=== PATIENT | male | born 1945 | race Caucasian/White ===

== ENCOUNTER 2023-12-16 12:00 | Inpatient (IN) | payer MEDICARE ==
[~2023-12-16] VITALS: Ht 177.8 cm; Wt 77.1 kg
[2023-12-16 12:41] LABS: BASOPHILS # (AUTO) 0.1 K/uL (0.0-0.2); BASOPHILS % (AUTO) 0.6 % (0.0-2.0); EOSINOPHILS # (AUTO) 0.1 K/uL (0.0-0.7); EOSINOPHILS % (AUTO) 0.6 % (0.0-6.0); HEMATOCRIT 47 % (39-51); HEMOGLOBIN 16.1 g/dL (13.5-17.5); LYMPHOCYTES # (AUTO) 3.1 K/uL (0.8-4.8); MEAN CORPUSCULAR HEMOGLOBIN 35 PG (26.0-33.0); MEAN CORPUSCULAR HGB CONC 34 g/dl (31.0-36.0); MEAN CORPUSCULAR VOLUME 101 fL (80-96); MONOCYTES % (AUTO) 9.8 % (2.0-12.0); NEUTROPHILS # (AUTO) 6.4 K/uL (1.8-8.9); PLATELET COUNT (AUTO) 375 K/uL (150-450); RED BLOOD CELL COUNT(AUTO) 4.65 MIL/uL (4.5-6.0); RED CELL DISTRIBUTION WIDTH 14.7 % (11.5-15.0); WHITE BLOOD COUNT (AUTO) 10.7 K/uL (4.3-11.0)
[2023-12-16 12:49] LABS: INR 1.14 (0.91-1.10); PARTIAL THROMBOPLASTIN TIME 23.1 SEC (24.3-34.3)
[2023-12-16 13:06] LABS: ALANINE AMINOTRANSFERASE 26 U/L (12-78); ALBUMIN 3.5 g/dL (3.4-5.0); ALKALINE PHOSPHATASE 99 U/L (46-116); ASPARTATE AMINOTRANSFERASE 20 U/L (15-37); BILIRUBIN,DIRECT 0.2 mg/dL (0.0-0.2); BILIRUBIN,TOTAL 0.7 mg/dL (0.2-1.0); CALCIUM, SERUM 10.1 mg/dL (8.5-10.1); CARBON DIOXIDE 25 mmol/L (21-32); CHLORIDE 99 mmol/L (98-107); GLUCOSE 142 mg/dL (74-106); POTASSIUM 3.6 mmol/L (3.5-5.1); SODIUM SERUM 136 mmol/L (136-145); TOTAL PROTEIN, SERUM 8.6 g/dL (6.4-8.2); UREA NITROGEN, BLOOD 7 mg/dL (7-18)
[2023-12-16 13:07] LABS: LACTIC ACID 3.1 mmol/L (0.4-2.0)
[2023-12-16] MEDS ORDERED: CEFTRIAXONE 1GM BAG (ER ONLY) 50 ML IV ONE (13:28)
[2023-12-16] MEDS: IV NS 0.9% 1,000 ML BAG IV ONE ×2 (13:40→13:41)
[2023-12-16] MEDS: CEFTRIAXONE 1GM BAG (ER ONLY) 1 GM/50 ML PIGGYBACK IV ONE (13:41)
[2023-12-16] MEDS ORDERED: ZOLPIDEM TARTRATE 5 MG TABLET PO PRN (15:00)
[2023-12-16] MEDS ORDERED: Z GUARD REMEDY 4 OZ OINT TP PRN (15:00)
[2023-12-16] MEDS ORDERED: HYDROCODONE/APAP 5/325MG TABLET PO PRN (15:00)
[2023-12-16] MEDS ORDERED: ACETAMINOPHEN 325 MG TABLET PO PRN (15:00)
[2023-12-16] MEDS ORDERED: ONDANSETRON HCL/PF 4 MG/2 ML VIAL IVP PRN (15:00)
[2023-12-16] MEDS ORDERED: MAGNESIUM HYDROXIDE 30 ML UDC PO PRN (15:00)
[2023-12-16] MEDS ORDERED: MAG HYDROX/AL HYDROX/SIMETH 30 ML UDC PO PRN (15:00)
[2023-12-16 16:00] VITALS: BP 140/82; TEMP 98.4; O2SAT 96
[2023-12-16] MEDS: IV NS 0.9% 1,000 ML IV PRN (18:37)
[2023-12-16 20:00] VITALS: BP 129/81; TEMP 99; O2SAT 95
[2023-12-16] MEDS: ENOXAPARIN SODIUM 40 MG/0.4 ML DISP.SYRIN SQ SCH (21:01)
[2023-12-17] VITALS (7 sets, daily range): BP systolic 111–151; BP diastolic 71–99; TEMP 97.7–98.8; O2SAT 97–99
[2023-12-17 06:41] LABS: BASOPHILS # (AUTO) 0.1 K/uL (0.0-0.2); BASOPHILS % (AUTO) 0.7 % (0.0-2.0); EOSINOPHILS # (AUTO) 0.1 K/uL (0.0-0.7); EOSINOPHILS % (AUTO) 1.6 % (0.0-6.0); HEMATOCRIT 43 % (39-51); HEMOGLOBIN 14.4 g/dL (13.5-17.5); LYMPHOCYTES # (AUTO) 3.1 K/uL (0.8-4.8); LYMPHOCYTES % (AUTO) 38.4 % (20.0-44.0); MEAN CORPUSCULAR HEMOGLOBIN 34 PG (26.0-33.0); MEAN CORPUSCULAR HGB CONC 34 g/dl (31.0-36.0); MEAN CORPUSCULAR VOLUME 102 fL (80-96); MONOCYTES % (AUTO) 12.3 % (2.0-12.0); NEUTROPHILS # (AUTO) 3.9 K/uL (1.8-8.9); PLATELET COUNT (AUTO) 340 K/uL (150-450); RED CELL DISTRIBUTION WIDTH 14.8 % (11.5-15.0); WHITE BLOOD COUNT (AUTO) 8.2 K/uL (4.3-11.0)
[2023-12-17 06:58] LABS: CALCIUM, SERUM 9.4 mg/dL (8.5-10.1); CARBON DIOXIDE 24 mmol/L (21-32); CHLORIDE 105 mmol/L (98-107); CREATININE 0.9 mg/dL (0.6-1.3); GLUCOSE 91 mg/dL (74-106); MAGNESIUM 1.8 mg/dL (1.8-2.4); PHOSPHORUS 3.2 mg/dL (2.5-4.9); POTASSIUM 3.4 mmol/L (3.5-5.1); SODIUM SERUM 139 mmol/L (136-145); UREA NITROGEN, BLOOD 9 mg/dL (7-18)
[2023-12-17] MEDS: PANTOPRAZOLE 40 MG TABLET.DR PO SCH (07:58)
[2023-12-17] MEDS: POTASSIUM CHLORIDE 20 MEQ TAB.PRT.SR PO ONE (09:42)
[2023-12-18] VITALS: BP 139/87; TEMP 98.8; O2SAT 97
[2023-12-18 04:00] VITALS: BP 132/85; TEMP 98.2; O2SAT 96
[2023-12-18 06:21] LABS: CALCIUM, SERUM 8.6 mg/dL (8.5-10.1); CARBON DIOXIDE 25 mmol/L (21-32); CHLORIDE 106 mmol/L (98-107); CREATININE 0.8 mg/dL (0.6-1.3); GLUCOSE 99 mg/dL (74-106); POTASSIUM 3.4 mmol/L (3.5-5.1); SODIUM SERUM 140 mmol/L (136-145); UREA NITROGEN, BLOOD 9 mg/dL (7-18)
[2023-12-18 08:00] VITALS: BP 158/92; TEMP 98.4; O2SAT 96
[2023-12-18] MEDS: POTASSIUM CHLORIDE 20 MEQ TAB.PRT.SR PO ONE (11:03)
[2023-12-18 12:00] VITALS: BP_SYST 128; BP_SYST 130; BP_DIAS 80; BP_DIAS 81; TEMP 98.4; TEMP 99.1; O2SAT 96; O2SAT 97
[2023-12-18 16:00] VITALS: BP 127/90; TEMP 99.5; O2SAT 96
[2023-12-18 20:00] VITALS: BP 119/80; TEMP 99.7; O2SAT 94
[2023-12-18] MEDS: VANCOMYCIN 1 GM in IV D5W 250 ML IV SCH (20:16)
[2023-12-19] VITALS: BP 133/97; TEMP 98.6; O2SAT 97
[2023-12-19 04:00] VITALS: BP 137/97; TEMP 97.9; O2SAT 96
[2023-12-19 05:57] LABS: BASOPHILS # (AUTO) 0.1 K/uL (0.0-0.2); BASOPHILS % (AUTO) 0.7 % (0.0-2.0); EOSINOPHILS # (AUTO) 0.1 K/uL (0.0-0.7); EOSINOPHILS % (AUTO) 1.6 % (0.0-6.0); HEMATOCRIT 39 % (39-51); HEMOGLOBIN 13.2 g/dL (13.5-17.5); LYMPHOCYTES % (AUTO) 39.2 % (20.0-44.0); MEAN CORPUSCULAR HEMOGLOBIN 34 PG (26.0-33.0); MEAN CORPUSCULAR HGB CONC 34 g/dl (31.0-36.0); MEAN CORPUSCULAR VOLUME 100 fL (80-96); MONOCYTES # (AUTO) 0.8 K/uL (0.1-1.30); NEUTROPHILS # (AUTO) 3.6 K/uL (1.8-8.9); NEUTROPHILS % (AUTO) 47.5 % (43.0-81.0); PLATELET COUNT (AUTO) 347 K/uL (150-450); RED BLOOD CELL COUNT(AUTO) 3.91 MIL/uL (4.5-6.0); RED CELL DISTRIBUTION WIDTH 14.4 % (11.5-15.0); WHITE BLOOD COUNT (AUTO) 7.6 K/uL (4.3-11.0)
[2023-12-19 06:27] LABS: ALANINE AMINOTRANSFERASE 19 U/L (12-78); ALBUMIN 2.7 g/dL (3.4-5.0); ALKALINE PHOSPHATASE 80 U/L (46-116); ASPARTATE AMINOTRANSFERASE 14 U/L (15-37); BILIRUBIN,TOTAL 0.4 mg/dL (0.2-1.0); CALCIUM, SERUM 9.1 mg/dL (8.5-10.1); CARBON DIOXIDE 27 mmol/L (21-32); CHLORIDE 107 mmol/L (98-107); CREATININE 0.8 mg/dL (0.6-1.3); GLUCOSE 94 mg/dL (74-106); MAGNESIUM 1.6 mg/dL (1.8-2.4); PHOSPHORUS 3.8 mg/dL (2.5-4.9); POTASSIUM 3.8 mmol/L (3.5-5.1); SODIUM SERUM 143 mmol/L (136-145); TOTAL PROTEIN, SERUM 6.5 g/dL (6.4-8.2); UREA NITROGEN, BLOOD 9 mg/dL (7-18)
[2023-12-19 08:00] VITALS: BP 124/75; TEMP 98.2; O2SAT 98
[2023-12-19] MEDS ORDERED: LOVA20TA2 PO (10:53)
[2023-12-19] MEDS ORDERED: ASPI-1169 PO (10:53)
[2023-12-19 12:00] VITALS: BP 125/80; TEMP 98
[2023-12-19] MEDS: MAGNESIUM OXIDE 400 MG TABLET PO ONE (12:03)
== END 2023-12-19 14:39 | DRG 69 ==
LOC: ER 12:08 → MEDSG1 15:30 → TELE1 20:55 → MEDSG1 12-19 09:56
PROVIDERS: ATTEND Internal Medicine
DX: I67.82 Cerebral ischemia (principal); E87.20 Acidosis, unspecified; Z59.02 Unsheltered homelessness; G93.49 Other encephalopathy; R29.6 Repeated falls; S00.81XA Abrasion of other part of head, initial encounter; Y92.9 Unspecified place or not applicable; W19.XXXA Unspecified fall, initial encounter; Z20.822 Contact with and (suspected) exposure to COVID-19; Z86.73 Personal history of transient ischemic attack (TIA), and cerebral infarction without residual deficits; G93.89 Other specified disorders of brain; E86.9 Volume depletion, unspecified; R29.700 NIHSS score 0
CPT/HCPCS: 36415; 70450-TC; 71045-TC; 80048-TC; 80053-TC; 80076-TC; 83605-TC; 83735-TC; 84100-TC; 84484-TC; 85025-TC; 85730-TC; 87040-TC; 93307-TC; 97112-TC; 97116-TC; 97530-TC; A4223; A6403; G0378; J0696; J1650; J3370; J7030; J7040; J7060

== ENCOUNTER 2024-04-02 16:54 | Inpatient (IN) | payer MEDICARE, BC ==
[~2024-04-02] VITALS: Ht 177.8 cm; Wt 78.9 kg
[~2024-04-02 16:54] MED LIST: ASPI-1169 PO; LOVA20TA2 PO
[2024-04-02 18:21] LABS: BASOPHILS % (AUTO) 0.6 % (0.0-2.0); EOSINOPHILS # (AUTO) 0.1 K/uL (0.0-0.7); EOSINOPHILS % (AUTO) 0.9 % (0.0-6.0); HEMATOCRIT 44 % (39-51); HEMOGLOBIN 14.6 g/dL (13.5-17.5); LYMPHOCYTES # (AUTO) 1.7 K/uL (0.8-4.8); LYMPHOCYTES % (AUTO) 23.6 % (20.0-44.0); MEAN CORPUSCULAR HEMOGLOBIN 32 PG (26.0-33.0); MEAN CORPUSCULAR HGB CONC 34 g/dl (31.0-36.0); MEAN CORPUSCULAR VOLUME 94 fL (80-96); MONOCYTES # (AUTO) 0.9 K/uL (0.1-1.30); MONOCYTES % (AUTO) 12.7 % (2.0-12.0); NEUTROPHILS # (AUTO) 4.5 K/uL (1.8-8.9); NEUTROPHILS % (AUTO) 62.2 % (43.0-81.0); PLATELET COUNT (AUTO) 300 K/uL (150-450); RED BLOOD CELL COUNT(AUTO) 4.64 MIL/uL (4.5-6.0); RED CELL DISTRIBUTION WIDTH 13.7 % (11.5-15.0); WHITE BLOOD COUNT (AUTO) 7.3 K/uL (4.3-11.0)
[2024-04-02 18:39] LABS: INR 1.09 (0.91-1.10); PROTHROMBIN TIME 11.5 SECS (9.2-11.1)
[2024-04-02 18:41] LABS: SERUM AMMONIA 2 umol/L (11-32)
[2024-04-02] MEDS: IV NS 0.9% 1,000 ML BAG IV ONE (18:42)
[2024-04-02 18:43] LABS: ALANINE AMINOTRANSFERASE 26 U/L (12-78); ALBUMIN 3.8 g/dL (3.4-5.0); ALCOHOL, BLOOD < 3 mg/dL (0-10); ALKALINE PHOSPHATASE 103 U/L (46-116); ASPARTATE AMINOTRANSFERASE 23 U/L (15-37); BILIRUBIN,DIRECT 0.1 mg/dL (0.0-0.2); BILIRUBIN,TOTAL 0.2 mg/dL (0.2-1.0); CARBON DIOXIDE 27 mmol/L (21-32); CHLORIDE 102 mmol/L (98-107); GLUCOSE 114 mg/dL (74-106); POTASSIUM 4.1 mmol/L (3.5-5.1); SODIUM SERUM 136 mmol/L (136-145); TOTAL PROTEIN, SERUM 8.1 g/dL (6.4-8.2); UREA NITROGEN, BLOOD 18 mg/dL (7-18)
[2024-04-02 19:59] LABS: APPEARANCE,URINE Clear (CLEAR); BILIRUBIN,URINE Negative (NEGATIVE); BLOOD, URINE Negative Ery/uL (NEGATIVE); COLOR,URINE YELLOW (YELLOW); KETONES,URINE Negative (NEGATIVE); LEUKOCYTE ESTERASE ,URINE Negative (NEGATIVE); NITRITE, URINE Negative (NEGATIVE); PH,URINE 7.5 (5.0-8.0); PROTEIN,URINE 30 mg/dl (NEGATIVE); UGLUCOSE Negative (NEGATIVE); UROBILINOGEN,URINE 0.2 EU/dL (0.2)
[2024-04-02 20:01] LABS: ADD URINE CULTURE NO; BACTERIA,URINE None seen /HPF (None Seen); RBC,URINE 0-2 /HPF (0-2); SQUAMOUS EPITHELIAL CELL,UR None Seen /HPF (None Seen); WBC,URINE 0-2 /HPF (0-3)
[2024-04-02 20:08] LABS: AMPHETAMINE, URINE NEGATIVE (NEGATIVE); BARBITURATE, URINE NEGATIVE (NEGATIVE); BENZODIAZEPINE, URINE NEGATIVE (NEGATIVE); CANNABINOID, URINE NEGATIVE (NEGATIVE); COCCAINE, URINE NEGATIVE (NEGATIVE); OPIATE, URINE NEGATIVE (NEGATIVE); PHENCYCLIDINE SCREEN,URINE NEGATIVE (NEGATIVE)
[2024-04-02 20:38] VITALS: BP 145/70; TEMP 98; O2SAT 92
[2024-04-02 21:10] VITALS: O2SAT 95
[2024-04-02] MEDS ORDERED: ONDANSETRON HCL/PF 4 MG/2 ML VIAL IVP PRN (21:30)
[2024-04-02] MEDS ORDERED: MAG HYDROX/AL HYDROX/SIMETH 30 ML UDC PO PRN (21:30)
[2024-04-02] MEDS ORDERED: MAGNESIUM HYDROXIDE 30 ML UDC PO PRN (21:30)
[2024-04-02] MEDS ORDERED: ACETAMINOPHEN 325 MG TABLET PO PRN (21:30)
[2024-04-02] MEDS ORDERED: Z GUARD REMEDY 4 OZ OINT TP PRN (21:30)
[2024-04-03 06:46] LABS: WHITE BLOOD COUNT (AUTO) 6.8 K/uL (4.3-11.0)
[2024-04-03 06:47] LABS: BASOPHILS % (AUTO) 0.5 % (0.0-2.0); EOSINOPHILS # (AUTO) 0.2 K/uL (0.0-0.7); EOSINOPHILS % (AUTO) 2.7 % (0.0-6.0); HEMATOCRIT 39 % (39-51); HEMOGLOBIN 13.2 g/dL (13.5-17.5); LYMPHOCYTES # (AUTO) 2.3 K/uL (0.8-4.8); LYMPHOCYTES % (AUTO) 34.5 % (20.0-44.0); MEAN CORPUSCULAR HEMOGLOBIN 32 PG (26.0-33.0); MEAN CORPUSCULAR HGB CONC 34 g/dl (31.0-36.0); MEAN CORPUSCULAR VOLUME 93 fL (80-96); MONOCYTES % (AUTO) 14.3 % (2.0-12.0); NEUTROPHILS # (AUTO) 3.3 K/uL (1.8-8.9); PLATELET COUNT (AUTO) 273 K/uL (150-450); RED BLOOD CELL COUNT(AUTO) 4.17 MIL/uL (4.5-6.0); RED CELL DISTRIBUTION WIDTH 13.4 % (11.5-15.0)
[2024-04-03 06:51] LABS: CALCIUM, SERUM 8.4 mg/dL (8.5-10.1); MAGNESIUM 1.9 mg/dL (1.8-2.4); PHOSPHORUS 3.4 mg/dL (2.5-4.9); POTASSIUM 3.8 mmol/L (3.5-5.1)
[2024-04-03] MEDS: PANTOPRAZOLE 40 MG TABLET.DR PO SCH (07:43)
[2024-04-03 08:00] VITALS: BP 136/98; TEMP 97.9; O2SAT 95
[2024-04-03 12:51] LABS: THYROID STIMULATING HORMONE 4.09 uIU/mL (0.358-3.74)
[2024-04-03 16:00] VITALS: BP 113/70; TEMP 98.6; O2SAT 95
[2024-04-03 20:00] VITALS: BP 135/90; TEMP 98.4; O2SAT 96
[2024-04-04 06:45] LABS: BASOPHILS % (AUTO) 0.7 % (0.0-2.0); EOSINOPHILS # (AUTO) 0.2 K/uL (0.0-0.7); EOSINOPHILS % (AUTO) 2.6 % (0.0-6.0); HEMATOCRIT 42 % (39-51); HEMOGLOBIN 14.5 g/dL (13.5-17.5); LYMPHOCYTES # (AUTO) 2.4 K/uL (0.8-4.8); LYMPHOCYTES % (AUTO) 34.6 % (20.0-44.0); MEAN CORPUSCULAR HEMOGLOBIN 32 PG (26.0-33.0); MEAN CORPUSCULAR HGB CONC 34 g/dl (31.0-36.0); MEAN CORPUSCULAR VOLUME 94 fL (80-96); NEUTROPHILS # (AUTO) 3.4 K/uL (1.8-8.9); NEUTROPHILS % (AUTO) 48.1 % (43.0-81.0); PLATELET COUNT (AUTO) 297 K/uL (150-450); RED BLOOD CELL COUNT(AUTO) 4.51 MIL/uL (4.5-6.0); RED CELL DISTRIBUTION WIDTH 13.9 % (11.5-15.0)
[2024-04-04 06:52] LABS: CALCIUM, SERUM 8.9 mg/dL (8.5-10.1); CREATININE 0.9 mg/dL (0.6-1.3); MAGNESIUM 2.1 mg/dL (1.8-2.4); PHOSPHORUS 3.7 mg/dL (2.5-4.9); POTASSIUM 4.1 mmol/L (3.5-5.1)
[2024-04-04 08:00] VITALS: BP 144/88; TEMP 98.1; O2SAT 95
[2024-04-04] MEDS ORDERED: ASPI-1169 PO (13:07)
[2024-04-04] MEDS ORDERED: ATOR20TA PO (13:07)
[2024-04-09 14:06] LABS: FOLIC ACID 6.7 ng/mL (>3.0); VITAMIN B1 THIAMINE,WB 115.3 nmol/L (66.5-200.0)
== END 2024-04-04 17:00 | disposition home or self-care (01) | DRG 884 ==
LOC: ER 16:59 → MED 20:39
PROVIDERS: ADMIT Nurse Practitioner Family; ATTEND Nurse Practitioner Acute Care
DX: F03.90 Unspecified dementia, unspecified severity, without behavioral disturbance, psychotic disturbance, mood disturbance, and anxiety (principal); Z59.00 Homelessness unspecified; I10 Essential (primary) hypertension; R73.9 Hyperglycemia, unspecified; Z79.82 Long term (current) use of aspirin; Z79.899 Other long term (current) drug therapy; R26.9 Unspecified abnormalities of gait and mobility; E78.5 Hyperlipidemia, unspecified; F12.90 Cannabis use, unspecified, uncomplicated; G93.89 Other specified disorders of brain
CPT/HCPCS: 36415; 70450-TC; 71045-TC; 80048-TC; 80061-TC; 80076-TC; 81001; 82140-TC; 82607-TC; 82962-TC; 83735-TC; 83921; 84100-TC; 84425; 84443-TC; 84484-TC; 85025-TC; 85730-TC; 87081-TC; 87086-TC; 97110-TC; 97116-TC; 97530-TC; G0378; G0480; J7030

== ENCOUNTER 2025-02-10 12:17 | Inpatient (IN) | payer MEDICARE, BC ==
[~2025-02-10] VITALS: Ht 182.9 cm; Wt 76.2 kg
[~2025-02-10 12:17] MED LIST changes: +ATOR20TA PO; -LOVA20TA2 PO
[2025-02-10] MEDS: PIPERACILLIN /TAZOBACTAM 3.375 G in IV D5W 50 ML IV ONE (12:30)
[2025-02-10] MEDS: IV NS 0.9% 1,000 ML BAG IV ONE (12:30)
[2025-02-10 13:18] LABS: APPEARANCE,URINE CLEAR (CLEAR); BLOOD, URINE Moderate Ery/uL (NEGATIVE); LEUKOCYTE ESTERASE ,URINE Negative (NEGATIVE); NITRITE, URINE NEGATIVE (NEGATIVE); UGLUCOSE Negative (NEGATIVE)
[2025-02-10 13:19] LABS: ADD URINE CULTURE NO; SQUAMOUS EPITHELIAL CELL,UR 0-2 /HPF (None Seen)
[2025-02-10] MEDS: VANCOMYCIN 1 GM in IV D5W 250 ML IV ONE (14:00)
[2025-02-10 14:08] LABS: PLATELET COUNT (AUTO) 191 K/uL (150-450); RED BLOOD CELL COUNT(AUTO) 4.62 MIL/uL (4.5-6.0); RED CELL DISTRIBUTION WIDTH 17.2 % (11.5-15.0); WHITE BLOOD COUNT (AUTO) 14.4 K/uL (4.3-11.0)
[2025-02-10 15:11] LABS: LACTIC ACID 1.9 mmol/L (0.4-2.0)
[2025-02-10 16:51] LABS: INR 2.2 (0.91-1.10)
[2025-02-10] MEDS ORDERED: DOSING PER PHARMACY-VANCOMYCIN IV XX PRN (17:30)
[2025-02-10] MEDS ORDERED: DOSING PER PHARMACY-ZOSYN IV 1 EA EA XX PRN (17:30)
[2025-02-10] MEDS ORDERED: ACETAMINOPHEN 325 MG TABLET PO PRN (17:30)
[2025-02-10] MEDS ORDERED: MAGNESIUM HYDROXIDE 30 ML UDC PO PRN (17:30)
[2025-02-10] MEDS ORDERED: ONDANSETRON HCL/PF 4 MG/2 ML VIAL IVP PRN (17:30)
[2025-02-10] MEDS: ENOXAPARIN SODIUM 40 MG/0.4 ML DISP.SYRIN SQ SCH (17:30)
[2025-02-10] MEDS ORDERED: MAG HYDROX/AL HYDROX/SIMETH 30 ML UDC PO PRN (17:30)
[2025-02-10] MEDS: IV NS 0.9% 1,000 ML IV PRN (18:15)
[2025-02-10 19:08] LABS: AMPHETAMINE, URINE NEGATIVE (NEGATIVE); BARBITURATE, URINE NEGATIVE (NEGATIVE); BENZODIAZEPINE, URINE NEGATIVE (NEGATIVE); CANNABINOID, URINE NEGATIVE (NEGATIVE); COCCAINE, URINE NEGATIVE (NEGATIVE); OPIATE, URINE NEGATIVE (NEGATIVE)
[2025-02-10 19:08] LABS: ASPARTATE AMINOTRANSFERASE 185 U/L (15-37); CALCIUM, SERUM 8.1 mg/dL (8.5-10.1); CREATININE 3.6 mg/dL (0.6-1.3); SODIUM SERUM 138 mmol/L (136-145); TOTAL PROTEIN, SERUM 7.0 g/dL (6.4-8.2)
[2025-02-10 19:16] LABS: UREA NITROGEN, BLOOD 109 mg/dL (7-18)
[2025-02-10 20:00] VITALS: BP 109/84; TEMP 98.7; O2SAT 97
[2025-02-10] MEDS: ZOSYN IVPB 2.25 G in IV D5W 50ml IV SCH (20:45)
[2025-02-10] MEDS: VANCOMYCIN 500 MG in IV D5W 100 ML IV ONE (20:46)
[2025-02-10] MEDS: ENOXAPARIN SODIUM 30 MG/0.3 ML DISP.SYRIN SQ SCH (21:00)
[2025-02-11] VITALS: BP 111/74; TEMP 98.2; O2SAT 98
[2025-02-11 04:00] VITALS: BP 109/77; TEMP 97.9; O2SAT 95
[2025-02-11 06:58] LABS: PLATELET COUNT (AUTO) 206 K/uL (150-450); RED BLOOD CELL COUNT(AUTO) 3.92 MIL/uL (4.5-6.0); RED CELL DISTRIBUTION WIDTH 15.5 % (11.5-15.0); WHITE BLOOD COUNT (AUTO) 14.3 K/uL (4.3-11.0)
[2025-02-11 07:11] LABS: ASPARTATE AMINOTRANSFERASE 177.0 U/L (15-37); CALCIUM, SERUM 8.3 mg/dL (8.5-10.1); PHOSPHORUS 4.3 mg/dL (2.5-4.9); SODIUM SERUM 140.0 mmol/L (136-145); TOTAL PROTEIN, SERUM 6.9 g/dL (6.4-8.2)
[2025-02-11 07:19] LABS: CREATININE 3.2 mg/dL (0.6-1.3)
[2025-02-11 07:41] LABS: UREA NITROGEN, BLOOD 106.0 mg/dL (7-18)
[2025-02-11] MEDS: PANTOPRAZOLE 40 MG TABLET.DR PO SCH (07:42)
[2025-02-11 08:00] VITALS: BP 122/74; TEMP 98.9; O2SAT 97
[2025-02-11] MEDS: ASPIRIN 81 MG TAB.CHEW PO SCH (09:38)
[2025-02-11] MEDS: ATORVASTATIN 10 MG TABLET PO SCH (09:38)
[2025-02-11] MEDS: DAKINS HALF STRENGTH (0.25%) 480 ML BOTTLE TOP SCH (09:39)
[2025-02-11] MEDS: HYDROCODONE/APAP 5/325MG TABLET PO ONE (11:47)
[2025-02-11] MEDS: LIDOCAINE 1%-EPI 1:100,000 50 ML VIAL IJ ONE (11:47)
[2025-02-11 12:00] VITALS: BP 110/66; TEMP 98.1; O2SAT 95
[2025-02-11 16:00] VITALS: BP 105/67; TEMP 97.2; O2SAT 96
[2025-02-11 16:47] LABS: CALCIUM, SERUM 8.2 mg/dL (8.5-10.1); SODIUM SERUM 142.0 mmol/L (136-145)
[2025-02-11 16:57] LABS: CREATININE, URINE 97.3 MG/DL (30.0-125.0); URINE SODIUM, RANDOM 5.0 mmol/l (40-220); URINE TOTAL PROTEIN 64.8 mg/dL (0-11.9)
[2025-02-11 16:59] LABS: CREATININE 2.5 mg/dL (0.6-1.3)
[2025-02-11 17:02] LABS: UREA NITROGEN, BLOOD 103.0 mg/dL (7-18)
[2025-02-11] MEDS: ENSURE ENLIVE CHOC 237 ML CAN PO SCH (17:39)
[2025-02-11] MEDS: ASCORBIC ACID 500 MG TABLET PO SCH (17:40)
[2025-02-11] MEDS: ARGININE/GLUTAMINE/CALCIUM BMB 1 EACH POWD.PACK PO SCH (17:40)
[2025-02-11 20:00] VITALS: BP 104/56; TEMP 98.4; O2SAT 96
[2025-02-11] MEDS: DOXYCYCLINE 100 MG in IV D5W 100 ML IV SCH (20:57)
[2025-02-12] VITALS: BP 100/59; TEMP 98.6; O2SAT 96
[2025-02-12 04:00] VITALS: BP 103/58; TEMP 99.1; O2SAT 97
[2025-02-12 07:12] LABS: *ANA ANTI-CENTROMERE B AB <0.2 AI (0.0-0.9); *ANA ANTI-DNA(DS) AB, QN 1 IU/mL (0-9); *ANA ANTI-JO-1 <0.2 AI (0.0-0.9); *ANA ANTICHROMATIN ANTIBODY <0.2 AI (0.0-0.9); *ANA RNP ANTIBODIES <0.2 AI (0.0-0.9); *ANA SJOGREN'S ANTI-SS-A <0.2 AI (0.0-0.9); *ANA SJOGREN'S ANTI-SS-B <0.2 AI (0.0-0.9); *ANAANTI-SCLERODERMA-70 AB <0.2 AI (0.0-0.9); *ANASMITH AB <0.2 AI (0.0-0.9)
[2025-02-12 08:00] VITALS: BP 109/62; TEMP 98.6; O2SAT 97
[2025-02-12 08:12] LABS: PLATELET COUNT (AUTO) 286 K/uL (150-450); RED BLOOD CELL COUNT(AUTO) 3.34 MIL/uL (4.5-6.0); RED CELL DISTRIBUTION WIDTH 16.2 % (11.5-15.0); WHITE BLOOD COUNT (AUTO) 14.4 K/uL (4.3-11.0)
[2025-02-12 08:14] LABS: ASPARTATE AMINOTRANSFERASE 247.0 U/L (15-37); CALCIUM, SERUM 8.2 mg/dL (8.5-10.1); CREATININE 1.5 mg/dL (0.6-1.3); PHOSPHORUS 2.5 mg/dL (2.5-4.9); SODIUM SERUM 152.0 mmol/L (136-145); TOTAL PROTEIN, SERUM 6.5 g/dL (6.4-8.2); UREA NITROGEN, BLOOD 66.0 mg/dL (7-18)
[2025-02-12 08:16] LABS: CREATINE KINASE, TOTAL 711.0 U/L (39-308)
[2025-02-12] MEDS: ZINC SULFATE 220 MG CAPSULE PO SCH (08:25)
[2025-02-12] MEDS ORDERED: POTASSIUM CHLORIDE 20 MEQ TAB.PRT.SR PO ONE (08:30)
[2025-02-12] MEDS: IV D5/0.45 NACL 1,000 ML IV SCH (09:00)
[2025-02-12] MEDS: POTASSIUM CHLORIDE 20 MEQ TAB.PRT.SR PO SCH (09:00)
[2025-02-12 12:00] VITALS: BP 95/60; TEMP 98.6; O2SAT 97
[2025-02-12 16:00] VITALS: BP 107/75; TEMP 98.6; O2SAT 97
[2025-02-12] MEDS: HYDROGEN PEROXIDE 480 ML BOTTLE TP PRN (17:13)
[2025-02-12 20:00] VITALS: BP 106/54; TEMP 98.4; O2SAT 97
[2025-02-12] MEDS ORDERED: VANCOMYCIN 1 GM in IV D5W 250 ML IV SCH (21:00)
[2025-02-13] VITALS (9 sets, daily range): BP systolic 101–109; BP diastolic 55–64; TEMP 98.1–100.2; O2SAT 96–100
[2025-02-13 05:08] LABS: PTH, INTACT 19 pg/mL (15-65)
[2025-02-13 06:10] LABS: COMPLEMENT C3, SERUM 195 mg/dL (82-167); COMPLEMENT C4, SERUM 18 mg/dL (12-38)
[2025-02-13 07:21] LABS: PLATELET COUNT (AUTO) 328 K/uL (150-450); RED BLOOD CELL COUNT(AUTO) 3.53 MIL/uL (4.5-6.0); RED CELL DISTRIBUTION WIDTH 16.2 % (11.5-15.0); WHITE BLOOD COUNT (AUTO) 13.8 K/uL (4.3-11.0)
[2025-02-13 07:31] LABS: CALCIUM, SERUM 8.0 mg/dL (8.5-10.1); CREATININE 1.3 mg/dL (0.6-1.3); PHOSPHORUS 2.0 mg/dL (2.5-4.9); SODIUM SERUM 154.0 mmol/L (136-145); UREA NITROGEN, BLOOD 39.0 mg/dL (7-18)
[2025-02-13] MEDS: IV D5W 1,000 ML IV SCH (09:17)
[2025-02-13] MEDS ORDERED: DOSING PER PHARMACY-VANCOMYCIN IV XX PRN (12:00)
[2025-02-13] MEDS: ZOSYN IVPB 3.375 G in IV D5W 50ml IV SCH (12:20)
[2025-02-13] MEDS: VANCOMYCIN 1 GM in IV D5W 250ml IV ONE (13:42)
[2025-02-13 14:44] LABS: ABG BASE EXCESS -4.1 mmol/L (-2.0-3.0); ABG OXYGEN SATURATION 96.6 % (94.0-98.0); ABG PCO2 24.0 mmHg (35.0-48.0); ABG PH 7.488 (7.350-7.450); ABG PO2 84.5 mmHg (83.0-108.0); ABG TOTAL HEMOGLOBIN 11.2 G/dL (13.5-17.5); FLOW, BLOOD GAS 4.00 L/min (0.00-30.00); FRACTIONATED INSPIRED OXYGEN 36.0 %; SITE, ABG RIGHT RADIAL
[2025-02-13] MEDS: VANCOMYCIN 500 MG in IV D5W 100ml IV ONE (15:02)
[2025-02-13 15:54] LABS: PLATELET COUNT (AUTO) 319 K/uL (150-450); RED BLOOD CELL COUNT(AUTO) 3.14 MIL/uL (4.5-6.0); RED CELL DISTRIBUTION WIDTH 16.3 % (11.5-15.0); WHITE BLOOD COUNT (AUTO) 15.3 K/uL (4.3-11.0)
[2025-02-13] MEDS: K PHOS NEUTRAL 250 MG TABLET PO ONE (16:18)
[2025-02-13 17:10] LABS: EOSINOPHILS % (MANUAL) 1 % (0-4); LYMPHOCYTES % (MANUAL) 8 % (16-48); MONOCYTES % (MANUAL) 2 % (0-11.0); NEUTROPHILS % (MANUAL) 89 (42-76); PLATELET ESTIMATE ADEQUATE
[2025-02-13] MEDS: IV LR 500 ML IV ONE (17:13)
[2025-02-13] MEDS ORDERED: IV LR 500 ML IV PRN (19:00)
[2025-02-13 19:07] LABS: *ANCA ATYPICAL p-ANCA <1:20 titer (Neg:<1:20); *ANCA CYTOPLASMIC (C-ANCA) <1:20 titer (Neg:<1:20); *ANCA PERINUCLEAR (P-ANCA) <1:20 titer (Neg:<1:20)
[2025-02-13] MEDS ORDERED: IV LR 500 ML IV ONE (20:00)
[2025-02-13 20:07] LABS: CALCIUM, SERUM 7.5 mg/dL (8.5-10.1); CREATININE 1.1 mg/dL (0.6-1.3); SODIUM SERUM 155.0 mmol/L (136-145); UREA NITROGEN, BLOOD 36.0 mg/dL (7-18)
[2025-02-13] MEDS ORDERED: ALBUMIN 25% 50 ML IV ONE (21:29)
[2025-02-13] MEDS ORDERED: MEROPENEM 1 G in IV NS 0.9% 100 ML IV SCH (21:30)
[2025-02-13] MEDS ORDERED: ALBUMIN 25% 12.5 GM/50 ML BOTTLE IV ONE (21:30)
[2025-02-13] MEDS: ALBUMIN 25% 12.5 GM in PREMIX 1 EA IV ONE (21:34)
[2025-02-13] MEDS: LEVETIRACETAM (250 MG) 250 MG TABLET PO SCH (21:37)
[2025-02-13] MEDS ORDERED: MEROPENEM 1 G VIAL IV ONE (23:42)
[2025-02-13] MEDS: MEROPENEM 1 G in IV NS 0.9% 100 ML IV ONE (23:53)
[2025-02-14] VITALS: BP 110/65; TEMP 99.3; O2SAT 100
[2025-02-14] MEDS ORDERED: ASCORBIC ACID 500 MG TABLET PO SCH (09:00)
[2025-02-14] MEDS ORDERED: ZINC SULFATE 220 MG CAPSULE PO SCH (09:00)
[2025-02-14] MEDS ORDERED: VANCOMYCIN HCL 1.25 GM in IV D5W 250 ML IV SCH (14:00)
== END 2025-02-14 03:18 | disposition short-term general hospital (02) | DRG 853 ==
LOC: ER 12:19 → TELE1 16:32
PROVIDERS: ADMIT Nurse Practitioner Family
PROC: 0KBP0ZZ Excision of Left Hip Muscle, Open Approach (ICD-10-PCS; principal; 2025-02-13)
PROC: 0KBN0ZZ Excision of Right Hip Muscle, Open Approach (ICD-10-PCS; 2025-02-13)
DX: A41.50 Gram-negative sepsis, unspecified (principal); E43 Unspecified severe protein-calorie malnutrition; L89.154 Pressure ulcer of sacral region, stage 4; G92.8 Other toxic encephalopathy; D68.59 Other primary thrombophilia; N17.9 Acute kidney failure, unspecified; Z59.00 Homelessness unspecified; E87.0 Hyperosmolality and hypernatremia; M46.28 Osteomyelitis of vertebra, sacral and sacrococcygeal region; M87.9 Osteonecrosis, unspecified; E87.20 Acidosis, unspecified; D62 Acute posthemorrhagic anemia; L97.819 Non-pressure chronic ulcer of other part of right lower leg with unspecified severity; T76.01XA Adult neglect or abandonment, suspected, initial encounter; L89.159 Pressure ulcer of sacral region, unspecified stage; R62.7 Adult failure to thrive; N18.9 Chronic kidney disease, unspecified; I12.9 Hypertensive chronic kidney disease with stage 1 through stage 4 chronic kidney disease, or unspecified chronic kidney disease; F03.90 Unspecified dementia, unspecified severity, without behavioral disturbance, psychotic disturbance, mood disturbance, and anxiety; Z79.82 Long term (current) use of aspirin; E78.5 Hyperlipidemia, unspecified; Z87.820 Personal history of traumatic brain injury; Z79.899 Other long term (current) drug therapy; S31.21XA Laceration without foreign body of penis, initial encounter; X58.XXXA Exposure to other specified factors, initial encounter; Y92.9 Unspecified place or not applicable; Z91.199 Patient's noncompliance with other medical treatment and regimen due to unspecified reason; L89.899 Pressure ulcer of other site, unspecified stage; B96.89 Other specified bacterial agents as the cause of diseases classified elsewhere; B87.1 Wound myiasis; D64.9 Anemia, unspecified; E83.41 Hypermagnesemia; E88.09 Other disorders of plasma-protein metabolism, not elsewhere classified; E87.8 Other disorders of electrolyte and fluid balance, not elsewhere classified; R79.89 Other specified abnormal findings of blood chemistry; R33.9 Retention of urine, unspecified; Z74.01 Bed confinement status; I83.018 Varicose veins of right lower extremity with ulcer other part of lower leg; L97.519 Non-pressure chronic ulcer of other part of right foot with unspecified severity; E86.9 Volume depletion, unspecified; M89.8X9 Other specified disorders of bone, unspecified site; A41.89 Other specified sepsis; Z68.22 Body mass index [BMI] 22.0-22.9, adult
CPT/HCPCS: 36415; 70450-TC; 71045-TC; 71250-TC; 72170-TC; 76770-TC; 80048-TC; 80053-TC; 80076-TC; 80202-TC; 81001; 82550-TC; 82553; 82570-TC; 83520; 83605-TC; 83735-TC; 83970; 84100-TC; 84155; 84165; 84300-TC; 84443-TC; 84484-TC; 85025-TC; 85027-TC; 85652-TC; 85730-TC; 86225; 86235; 86256; 86803; 87040-TC; 87070-TC; 87086-TC; 87186-TC; 87340; 92526; 92611; 93307-TC; 97110-TC; 97530-TC; A4216; A4223; A6253; A6403; G0378; J1650; J2185; J2543; J3373; J3490; J7030; J7060; J7070; J7120; P9047